=== PATIENT | male | born 1955 | race Caucasian/White ===

== ENCOUNTER 2023-01-16 08:57 | Outpatient (CLI) | payer OTHER | END 2023-01-16 08:59 | disposition home or self-care (01) | LOC: NUCLEAR 08:57 | PROVIDERS: ATTEND Internal Medicine | DX: I34.1 Nonrheumatic mitral (valve) prolapse (principal) ==

== ENCOUNTER 2023-02-28 07:18 | Outpatient (CLI) | payer OTHER | END 2023-02-28 07:20 | disposition home or self-care (01) | LOC: NUCLEAR 07:18 | PROVIDERS: ATTEND Internal Medicine | DX: I70.203 Unspecified atherosclerosis of native arteries of extremities, bilateral legs (principal) ==

== ENCOUNTER → 2023-03-14 09:22 | Outpatient (CLI) | payer OTHER | END | disposition home or self-care (01) | LOC: NUCLEAR 03-01 08:00 | PROVIDERS: ATTEND Internal Medicine | DX: I87.2 Venous insufficiency (chronic) (peripheral) (principal) ==

== ENCOUNTER → 2023-08-09 | Day surgery (SDC) | payer OTHER ==
[~2023-08-09] MED LIST: CENTRUM PO; FOLIC PO; KETO10TA2 PO; MIRALAX17 GM PO; TAMS0.4C PO; TRAMADOL HCL50 MG PO; TYLENOL ARTHRI650 MG PO; VITAMIN B12 PO; VITAMIN C100 MG PO
== END | disposition home or self-care (01) ==
LOC: ADM 07-27 10:30 → CIR.AMB 08-02 07:00
PROVIDERS: ATTEND Surgery
DX: K40.90 Unilateral inguinal hernia, without obstruction or gangrene, not specified as recurrent (principal); K42.9 Umbilical hernia without obstruction or gangrene; I10 Essential (primary) hypertension; Z20.822 Contact with and (suspected) exposure to COVID-19
CPT/HCPCS: 49650; 49591; C1781